=== PATIENT | male | born 1960 | race Caucasian/White ===

== ENCOUNTER 2016-12-08 21:43 | Emergency (ER) | payer OTHER ==
[~2016-12-08] VITALS: Ht 180.3 cm; Wt 70.0 kg
[~2016-12-08 21:43] MED LIST: LISI-587 PO; PROT40TA PO; SUCR1S PO; TAMS0.4C67 PO; ZOFR4TAB3 SL
[2016-12-08] MEDS ORDERED: SODIUM CHLOR 0.9% 1000 ML INJ 1,000 ML IV SCH (21:51)
[2016-12-08 21:52] VITALS: BP 175/103; PULSE 96; RESP 18; TEMP 98.6; O2SAT 97
[2016-12-08 21:56] VITALS: BP 177/105; PULSE 97; RESP 16; O2SAT 97
--- NOTE | 2016-12-08 21:59 | PD ---
HPI Chief Complaint: Abdominal Pain Time Seen by Provider: 21:53 Travel History International Travel<30 days: No Contact w/Intl Traveler<30days: No History of Present Illness HPI 56-year-old male with a history of hypertension and chronic epigastric abdominal pain presents to the emergency department for evaluation of epigastric abdominal pain. The patient reports a history of Monica fundoplication surgery about 20 years ago and states that it was performed to tight. States that he has had a few revisions since then which did not improve his pain. States that he follows up with pain management who performs celiac plexus blocks which has been keeping his pain under control but that he was unable to get the insurance approval in time to get another block, it is been 1.5 months and usually lasts about one month. States he has been taking oxycodone as prescribed by his pain management physician but that he began vomiting today and has been unable to keep any of his medications down. He denies any fever, chills, chest pain, shortness of breath, diarrhea, constipation, lightheadedness or dizziness. No other complaints. PFSH Past Medical History Genitourinary: Yes (BPH) Hypertension: Yes Immune Disorder: Yes (HEP C) Immunizations Current: Yes Past Surgical History Abdominal Surgery: Yes Appendectomy: Yes Other Surgery: Yes (FUNDOPLICATION, LAPROSCOPIC REVISION X2) Social History Alcohol Use: No Tobacco Use: Yes (1/2PPD) Substance Use: No Allergies-Medications (Allergen,Severity, Reaction): Coded Allergies: No Known Allergies (Unverified , 12/08/16) Reported Meds & Prescriptions Reported Meds & Active Scripts Active Carafate 1 Gm/10 Ml Udc (Sucralfate) 1 Gm/10 Ml Susp 1 Gm PO TIDACHS Take with water on an empty stomach. To reduce the potential of adversely affecting the absorption of other drugs, take other drugs 2 hours prior to Sucralfate. Zofran ODT (Ondansetron HCl) 4 Mg Tab 4 Mg SL QID PRN FOR NAUSEA/VOMITING Reported Flomax (Tamsulosin HCl) 0.4 Mg Cap 0.4 Mg PO DAILY Protonix (Pantoprazole Sodium) 40 Mg Tab 40 Mg PO BID Zestoretic 20/25 (Lisinopril/Hctz 20 mg/25 mg) 20 mg/25 mg Tab 1 Tab PO DAILY Review of Systems Except as stated in HPI: all other systems reviewed are Neg Physical Exam Narrative GENERAL: Well-nourished and well-developed male patient in no acute distress. SKIN: Warm and dry. HEAD: Normocephalic and atraumatic. EYES: No injection, drainage, or hyphema noted. PERRLA. EOMI. ENT: No nasal drainage noted. Oropharynx is clear. NECK: Supple and the trachea is midline. CARDIOVASCULAR: Regular rate and rhythm. RESPIRATORY: Breath sounds are equal bilaterally with no accessory muscle use, wheezing, rhonchi, or crackles. GASTROINTESTINAL: Mild epigastric tenderness to palpation. Abdomen is soft and nondistended. No rebound tenderness or guarding. MUSCULOSKELETAL: No obvious deformities, swelling, cyanosis, or ecchymosis is present throughout the upper and lower extremities. Patient has full range of motion without any signs of neurovascular compromise. NEUROLOGICAL: Awake, alert, and oriented. Normal speech and gait. Cranial nerves are grossly intact. Data Data Last Documented VS Vital Signs Date Time Temp Pulse Resp B/P Pulse Ox O2 Delivery O2 Flow Rate FiO2 12/08/16 21:56 97 16 177/105 97 Room Air 12/08/16 21:52 98.6 Orders Complete Blood Count With Diff (12/08/16 21:51) Comprehensive Metabolic Panel (12/08/16 21:51) Lipase (12/08/16 21:51) Urinalysis - C+S If Indicated (12/08/16 21:51) Iv Access Insert/Monitor (12/08/16 21:51) Ecg Monitoring (12/08/16 21:51) Oximetry (12/08/16 21:51) Ondansetron Inj (Zofran Inj) (12/08/16 22:00) Sodium Chlor 0.9% 1000 Ml Inj (Ns 1000 M (12/08/16 21:51) Sodium Chloride 0.9% Flush (Ns Flush) (12/08/16 22:00) Hydromorphone Pf Inj (Dilaudid Pf Inj) (12/08/16 22:00) Prochlorperazine Inj (Compazine Inj) (12/08/16 22:30) Labs Laboratory Tests Test 12/08/16 22:10 White Blood Count 9.6 TH/MM3 Red Blood Count 5.11 MIL/MM3 Hemoglobin 15.9 GM/DL Hematocrit 44.6 % Mean Corpuscular Volume 87.3 FL Mean Corpuscular Hemoglobin 31.1 PG Mean Corpuscular Hemoglobin 35.6 % Concent Red Cell Distribution Width 15.2 % Platelet Count 386 TH/MM3 Mean Platelet Volume 8.3 FL Neutrophils (%) (Auto) 78.9 % Lymphocytes (%) (Auto) 16.2 % Monocytes (%) (Auto) 4.1 % Eosinophils (%) (Auto) 0.0 % Basophils (%) (Auto) 0.8 % Neutrophils # (Auto) 7.6 TH/MM3 Lymphocytes # (Auto) 1.6 TH/MM3 Monocytes # (Auto) 0.4 TH/MM3 Eosinophils # (Auto) 0.0 TH/MM3 Basophils # (Auto) 0.1 TH/MM3 CBC Comment DIFF FINAL Differential Comment MDM Medical Decision Making Medical Screen Exam Complete: Yes Emergency Medical Condition: Yes Differential Diagnosis Chronic abdominal pain versus gastritis versus PUD versus GERD Narrative Course 56-year-old male presents to the emergency department for evaluation of epigastric abdominal pain and vomiting. Patient is afebrile, vital signs are stable. He has a history of same symptoms for years with these intermittent episodes about 3 times per year. IV access is obtained, labs have been drawn and sent. Patient is administered Dilaudid 2 mg IV and Zofran 4 mg IV. Patient signed out to Dr. Watts who will assume care of the patient and disposition. Nereida Tellez Dec 08, 2016 21:59
[2016-12-08] MEDS ORDERED: HYDROmorphone HCL PF 1 MG/ML VIAL IVS ONE (22:00)
[2016-12-08] MEDS ORDERED: ONDANSETRON HCL 4 MG/2 ML VIAL IVP ONE (22:00)
[2016-12-08] MEDS ORDERED: SODIUM CHLORIDE 0.9% FLUSH 5 ML FLUSH IVF PRN (22:00)
[2016-12-08 22:17] LABS: AUTOMATED NEUTROPHIL # 7.6 TH/MM3 (1.8-7.7); BASOPHIL # 0.1 TH/MM3 (0-0.2); BASOPHIL % 0.8 % (0.0-2.0); HEMATOCRIT 44.6 % (39.0-51.0); HEMO FLAGS DIFF FINAL; LYMPH % 16.2 % (9.0-44.0); LYMPHOCYTE # 1.6 TH/MM3 (1.0-4.8); MEAN CELL VOLUME 87.3 FL (80.0-100.0); MEAN CORPUSCULAR HEMOGLOBIN 31.1 PG (27.0-34.0); MEAN CORPUSCULAR HGB CONC 35.6 % (32.0-36.0); MONO % 4.1 % (0.0-8.0); NEUT % 78.9 % (16.0-70.0); PLATELET COUNT 386 TH/MM3 (150-450); RED BLOOD COUNT 5.11 MIL/MM3 (4.50-5.90); RED CELL DISTRIBUTION WIDTH 15.2 % (11.6-17.2); WHITE BLOOD COUNT 9.6 TH/MM3 (4.0-11.0)
[2016-12-08] MEDS ORDERED: PROCHLORPERAZINE INJ 10 MG/2 ML VIAL IVS ONE (22:30)
[2016-12-08 23:30] VITALS: BP 176/105; PULSE 88; RESP 16; O2SAT 97
[2016-12-08] MEDS ORDERED: HYDROmorphone HCL PF 1 MG/ML VIAL IV PUSH ONE (23:30)
[2016-12-08 23:31] LABS: ANION GAP 9 MEQ/L (5-15); AST (GOT) 66 U/L (15-37); BICARBONATE 26.8 MEQ/L (21.0-32.0); BLOOD UREA NITROGEN 13 MG/DL (7-18); CHLORIDE 104 MEQ/L (98-107); GLOMERULAR FILTRATION RATE 89 ML/MIN (>89); POTASSIUM 4.1 MEQ/L (3.5-5.1); SODIUM (NA) 140 MEQ/L (136-145)
[2016-12-08 23:34] LABS: ALKALINE PHOSPHATASE 73 U/L (45-117); ALT (GPT) 109 U/L (12-78); TOTAL BILIRUBIN ADULT 0.5 MG/DL (0.2-1.0)
[2016-12-08 23:52] LABS: BLOOD, URINE NEG (NEG); GLUCOSE,URINE NEG (NEG); KETONE, URINE 80 mg/dL (NEG); MUCUS URINE MANY /lpf (OCC); NITRITE,URINE NEG (NEG); PH, URINE 7.5 (5.0-8.5); SQUAMOUS EPITHELIAL CELL URINE 1 /hpf (0-5); URINE COLOR YELLOW (YELLW/STRAW)
[2016-12-08 23:53] LABS: COMMENT (UR) CULT NOT INDICATED; CULTURE IF INDICATED CULT NOT INDICATED
--- NOTE | 2016-12-09 01:11 | PD ---
Data Data Last Documented VS Vital Signs Date Time Temp Pulse Resp B/P Pulse Ox O2 Delivery O2 Flow Rate FiO2 12/08/16 23:30 88 16 176/105 97 Room Air 12/08/16 21:52 98.6 Orders Complete Blood Count With Diff (12/08/16 21:51) Comprehensive Metabolic Panel (12/08/16 21:51) Lipase (12/08/16 21:51) Urinalysis - C+S If Indicated (12/08/16 21:51) Iv Access Insert/Monitor (12/08/16 21:51) Ecg Monitoring (12/08/16 21:51) Oximetry (12/08/16 21:51) Ondansetron Inj (Zofran Inj) (12/08/16 22:00) Sodium Chlor 0.9% 1000 Ml Inj (Ns 1000 M (12/08/16 21:51) Sodium Chloride 0.9% Flush (Ns Flush) (12/08/16 22:00) Hydromorphone Pf Inj (Dilaudid Pf Inj) (12/08/16 22:00) Prochlorperazine Inj (Compazine Inj) (12/08/16 22:30) Hydromorphone Pf Inj (Dilaudid Pf Inj) (12/08/16 23:30) Labs Laboratory Tests Test 12/08/16 12/08/16 12/08/16 22:10 22:50 23:35 White Blood Count 9.6 TH/MM3 Red Blood Count 5.11 MIL/MM3 Hemoglobin 15.9 GM/DL Hematocrit 44.6 % Mean Corpuscular Volume 87.3 FL Mean Corpuscular Hemoglobin 31.1 PG Mean Corpuscular Hemoglobin 35.6 % Concent Red Cell Distribution Width 15.2 % Platelet Count 386 TH/MM3 Mean Platelet Volume 8.3 FL Neutrophils (%) (Auto) 78.9 % Lymphocytes (%) (Auto) 16.2 % Monocytes (%) (Auto) 4.1 % Eosinophils (%) (Auto) 0.0 % Basophils (%) (Auto) 0.8 % Neutrophils # (Auto) 7.6 TH/MM3 Lymphocytes # (Auto) 1.6 TH/MM3 Monocytes # (Auto) 0.4 TH/MM3 Eosinophils # (Auto) 0.0 TH/MM3 Basophils # (Auto) 0.1 TH/MM3 CBC Comment DIFF FINAL Differential Comment Sodium Level 140 MEQ/L Potassium Level 4.1 MEQ/L Chloride Level 104 MEQ/L Carbon Dioxide Level 26.8 MEQ/L Anion Gap 9 MEQ/L Blood Urea Nitrogen 13 MG/DL Creatinine 0.88 MG/DL Estimat Glomerular Filtration 89 ML/MIN Rate Random Glucose 114 MG/DL Calcium Level 9.5 MG/DL Total Bilirubin 0.5 MG/DL Aspartate Amino Transf 66 U/L (AST/SGOT) Alanine Aminotransferase 109 U/L (ALT/SGPT) Alkaline Phosphatase 73 U/L Total Protein 8.3 GM/DL Albumin 3.8 GM/DL Lipase 46 U/L Urine Color YELLOW Urine Turbidity CLEAR Urine pH 7.5 Urine Specific [place] 1.027 Urine Protein 30 mg/dL Urine Glucose (UA) NEG mg/dL Urine Ketones 80 mg/dL Urine Occult Blood NEG Urine Nitrite NEG Urine Bilirubin NEG Urine Urobilinogen 8.0 MG/DL Urine Leukocyte Esterase NEG Urine RBC 2 /hpf Urine WBC 3 /hpf Urine Squamous Epithelial 1 /hpf Cells Urine Mucus MANY /lpf Microscopic Urinalysis Comment CULT NOT INDICATED MDM Supervised Visit with MARY BETH: Yes Narrative Course The history, exam, and medical decision-making in the associated midlevel provider note were completed with my assistance. I reviewed and agree with the findings presented. I attest that I had a [id number] encounter with the patient on the same day, and personally performed and documented my assessment and findings in the medical record. *My assessment and Findings: This is a 56-year-old male who presents to the emergency department with poorly controlled abdominal pain and nausea in the setting of a history of chronic abdominal pain. He says his symptoms are similar to prior. He's been getting treated with still at plexus blocks and oxycodone by his pain management doctor however he's been having trouble getting approval for his celiac plexus block. Patient is uncomfortable appearing on exam, tender to palpation in the epigastrium. Labs are all reassuring. I don't think any imaging is warranted as this pain is acute on chronic. Patient was given opiates only because he is currently being prescribed opiates at home, and we were able to get his pain under control in the emergency Department. I don't think he warrants admission or advanced imaging at this time. Patient was discharged home. Ericka Watts MD Dec 09, 2016 01:11
[2016-12-09] MEDS ORDERED: HYDROmorphone HCL PF 1 MG/ML VIAL IV PUSH ONE (01:30)
[2016-12-09] MEDS ORDERED: LISI20TA3 PO (01:48)
[2016-12-09] MEDS ORDERED: ZOFR8TAB4 SL (01:50)
[2016-12-09] MEDS ORDERED: PROT40TA PO (01:50)
[2016-12-09] MEDS ORDERED: OXYC15TA PO (01:52)
[2016-12-09] MEDS ORDERED: TAMS5CAP PO (01:52)
--- NOTE | 2016-12-09 02:30 | PD ---
Data Data Last Documented VS Vital Signs Date Time Temp Pulse Resp B/P Pulse Ox O2 Delivery O2 Flow Rate FiO2 12/08/16 23:30 88 16 176/105 97 Room Air 12/08/16 21:52 98.6 Orders Complete Blood Count With Diff (12/08/16 21:51) Comprehensive Metabolic Panel (12/08/16 21:51) Lipase (12/08/16 21:51) Urinalysis - C+S If Indicated (12/08/16 21:51) Iv Access Insert/Monitor (12/08/16 21:51) Ecg Monitoring (12/08/16 21:51) Oximetry (12/08/16 21:51) Ondansetron Inj (Zofran Inj) (12/08/16 22:00) Sodium Chlor 0.9% 1000 Ml Inj (Ns 1000 M (12/08/16 21:51) Sodium Chloride 0.9% Flush (Ns Flush) (12/08/16 22:00) Hydromorphone Pf Inj (Dilaudid Pf Inj) (12/08/16 22:00) Prochlorperazine Inj (Compazine Inj) (12/08/16 22:30) Hydromorphone Pf Inj (Dilaudid Pf Inj) (12/08/16 23:30) Hydromorphone Pf Inj (Dilaudid Pf Inj) (12/09/16 01:30) Labs Laboratory Tests Test 12/08/16 12/08/16 12/08/16 22:10 22:50 23:35 White Blood Count 9.6 TH/MM3 Red Blood Count 5.11 MIL/MM3 Hemoglobin 15.9 GM/DL Hematocrit 44.6 % Mean Corpuscular Volume 87.3 FL Mean Corpuscular Hemoglobin 31.1 PG Mean Corpuscular Hemoglobin 35.6 % Concent Red Cell Distribution Width 15.2 % Platelet Count 386 TH/MM3 Mean Platelet Volume 8.3 FL Neutrophils (%) (Auto) 78.9 % Lymphocytes (%) (Auto) 16.2 % Monocytes (%) (Auto) 4.1 % Eosinophils (%) (Auto) 0.0 % Basophils (%) (Auto) 0.8 % Neutrophils # (Auto) 7.6 TH/MM3 Lymphocytes # (Auto) 1.6 TH/MM3 Monocytes # (Auto) 0.4 TH/MM3 Eosinophils # (Auto) 0.0 TH/MM3 Basophils # (Auto) 0.1 TH/MM3 CBC Comment DIFF FINAL Differential Comment Sodium Level 140 MEQ/L Potassium Level 4.1 MEQ/L Chloride Level 104 MEQ/L Carbon Dioxide Level 26.8 MEQ/L Anion Gap 9 MEQ/L Blood Urea Nitrogen 13 MG/DL Creatinine 0.88 MG/DL Estimat Glomerular Filtration 89 ML/MIN Rate Random Glucose 114 MG/DL Calcium Level 9.5 MG/DL Total Bilirubin 0.5 MG/DL Aspartate Amino Transf 66 U/L (AST/SGOT) Alanine Aminotransferase 109 U/L (ALT/SGPT) Alkaline Phosphatase 73 U/L Total Protein 8.3 GM/DL Albumin 3.8 GM/DL Lipase 46 U/L Urine Color YELLOW Urine Turbidity CLEAR Urine pH 7.5 Urine Specific [place] 1.027 Urine Protein 30 mg/dL Urine Glucose (UA) NEG mg/dL Urine Ketones 80 mg/dL Urine Occult Blood NEG Urine Nitrite NEG Urine Bilirubin NEG Urine Urobilinogen 8.0 MG/DL Urine Leukocyte Esterase NEG Urine RBC 2 /hpf Urine WBC 3 /hpf Urine Squamous Epithelial 1 /hpf Cells Urine Mucus MANY /lpf Microscopic Urinalysis Comment CULT NOT INDICATED MDM Supervised Visit with MARY BETH: Yes Diagnosis Primary Impression: Chronic abdominal pain Patient Instructions: General Instructions Additional Instruction: If you develop severe or worsening abdominal pain, fever>100.4, persistent vomiting or inability to eat or drink return to the emergency department immediately. Follow up with your primary care physician in 1-2 days for a check-up. Med/Other Pt SpecificInfo: No Change to Meds Disposition: 01 DISCHARGE HOME Condition: Stable Ericka Watts MD Dec 09, 2016 02:30
== END 2016-12-09 02:45 | disposition home or self-care (01) ==
LOC: NEPC 21:43
DX: R10.13 Epigastric pain (principal); G89.29 Other chronic pain; R50.9 Fever, unspecified; I10 Essential (primary) hypertension; N40.0 Benign prostatic hyperplasia without lower urinary tract symptoms
CPT/HCPCS: 80053; 81001; 83690; 85025; 96374; 96375; 96376; 99284; J0780; J1170; J2405; J7030

== ENCOUNTER 2017-02-02 18:43 | Emergency (ER) | payer OTHER ==
[~2017-02-02] VITALS: Ht 180.3 cm; Wt 70.0 kg
[~2017-02-02 18:43] MED LIST changes: -LISI-587 PO; +LISI20TA3 PO; +OXYC15TA PO; -SUCR1S PO; -TAMS0.4C67 PO; +TAMS5CAP PO; -ZOFR4TAB3 SL; +ZOFR8TAB4 SL
[2017-02-02 18:49] VITALS: BP 183/97; PULSE 88; RESP 22; TEMP 98.9; O2SAT 100
[2017-02-02 18:55] VITALS: BP 183/97; PULSE 83; RESP 18; O2SAT 100
[2017-02-02] MEDS ORDERED: SODIUM CHLOR 0.9% 1000 ML INJ 1,000 ML IV SCH (19:05)
[2017-02-02] MEDS ORDERED: PANTOPRAZOLE SODIUM 40 MG VIAL IVP ONE (19:15)
[2017-02-02] MEDS ORDERED: ALUMINUM/MAGNESIUM/SIMETH 30 ML CUP PO ONE (19:15)
[2017-02-02] MEDS ORDERED: SODIUM CHLOR 0.9% 1000 ML INJ 1,000 ML IV ONE (19:15)
[2017-02-02] MEDS ORDERED: SODIUM CHLORIDE 0.9% FLUSH 10 ML FLUSH IV FLUSH PRN (19:15)
[2017-02-02] MEDS ORDERED: LIDOCAINE VISCOUS 2% SOLN 15 ML UDC PO ONE (19:15)
[2017-02-02] MEDS ORDERED: HYDROmorphone HCL PF 1 MG/ML VIAL IVS ONE (19:15)
[2017-02-02] MEDS ORDERED: DICYCLOMINE HCL 10 MG CAP PO ONE (19:15)
[2017-02-02] MEDS ORDERED: ONDANSETRON HCL 4 MG/2 ML VIAL IVP ONE (19:15)
--- NOTE | 2017-02-02 19:19 | PD ---
HPI Chief Complaint: Abdominal Pain Time Seen by Provider: 18:59 Travel History International Travel<30 days: No Contact w/Intl Traveler<30days: No Traveled to known affect area: No History of Present Illness HPI Patient is a 56-year-old male with history of hypertension, BPH, GERD, chronic abdominal pain currently seeing pain management for this. Patient reports that 2 days ago, he woke up and had epigastric pain. Reports that he always has epigastric pain and takes to his symptoms usually resolve after taking Zofran, Protonix and oxycodone. He tried his medication with no relief of symptoms. Patient reports that he does see pain management (DR. Rudd) for his epigastric pain and does get celiac nerve blocks, he did receive a nerve block last week and reports that "it didn't work the last time." Patient reports that he has had multiple surgeries as he had a Hai fundoplication a few years ago and had 2 revisions due to a "failed surgery". PFSH Past Medical History Cardiovascular Problems: Yes Diabetes: No Genitourinary: Yes (BPH) Hypertension: Yes Immune Disorder: Yes (HEP C) Immunizations Current: Yes Tetanus Vaccination: < 5 Years Influenza Vaccination: Yes Past Surgical History Abdominal Surgery: Yes (HERNIA REPAIR X3) Appendectomy: Yes Other Surgery: Yes (FUNDOPLICATION, LAPROSCOPIC REVISION X2) Social History Alcohol Use: No Tobacco Use: Yes (1/2PPD) Substance Use: No Allergies-Medications (Allergen,Severity, Reaction): Coded Allergies: No Known Allergies (Unverified , 02/02/17) Reported Meds & Prescriptions Reported Meds & Active Scripts Active Zofran Odt (Ondansetron Odt) 4 Mg Tab 4 Mg SL Q6HR PRN Reported Oxycodone (Oxycodone HCl) 15 Mg Tab 15 Mg PO Q4H PRN Flomax (Tamsulosin HCl) 0.4 Mg Cap 0.4 Mg PO HS Zofran Odt (Ondansetron Odt) 8 Mg Tab 8 Mg SL Q8H PRN Protonix (Pantoprazole Sodium) 40 Mg Tab 40 Mg PO DAILY Lisinopril-Hctz 20-25 Mg Tab 1 Tab PO DAILY Review of Systems General / Constitutional: No: Fever Eyes: No: Visual changes HENT: No: Headaches Cardiovascular: No: Chest Pain or Discomfort Respiratory: No: Shortness of Breath Gastrointestinal: Positive: Nausea, Vomiting, Diarrhea, Abdominal Pain Genitourinary: No: Dysuria Musculoskeletal: No: Pain Skin: No Rash Neurologic: No: Weakness Psychiatric: No: Depression Endocrine: No: Polydipsia Hematologic/Lymphatic: No: Easy Bruising Physical Exam Narrative GENERAL: Mild distress SKIN: Warm and dry. HEAD: Atraumatic. Normocephalic. EYES: Pupils equal and round. No scleral icterus. No injection or drainage. ENT: No nasal bleeding or discharge. Mucous membranes pink and moist. NECK: Trachea midline. No JVD. CARDIOVASCULAR: Regular rate and rhythm. No murmur appreciated. RESPIRATORY: No accessory muscle use. Clear to auscultation. Breath sounds equal bilaterally. GASTROINTESTINAL: Abdomen soft, increased tenderness to epigastrium MUSCULOSKELETAL: No obvious deformities. No clubbing. No cyanosis. No edema. NEUROLOGICAL: Awake and alert. No obvious cranial nerve deficits. Motor grossly within normal limits. Normal speech. PSYCHIATRIC: Appropriate mood and affect; insight and judgment normal. Data Data Last Documented VS Vital Signs Date Time Temp Pulse Resp B/P Pulse Ox O2 Delivery O2 Flow Rate FiO2 02/02/17 21:49 80 18 164/92 98 Room Air 02/02/17 18:49 98.9 Orders Complete Blood Count With Diff (02/02/17 19:05) Comprehensive Metabolic Panel (02/02/17 19:05) Lipase (02/02/17 19:05) Prothrombin Time / Inr (Pt) (02/02/17 19:05) Act Partial Throm Time (Ptt) (02/02/17 19:05) Urinalysis - C+S If Indicated (02/02/17 19:05) Ct Abd/Pel W Iv Contrast(Rout) (02/02/17 19:05) Iv Access Insert/Monitor (02/02/17 19:05) Ecg Monitoring (02/02/17 19:05) Oximetry (02/02/17 19:05) NPO (02/02/17 19:05) Ondansetron Inj (Zofran Inj) (02/02/17 19:15) Pantoprazole Inj (Protonix Inj) (02/02/17 19:15) Sodium Chlor 0.9% 1000 Ml Inj (Ns 1000 M (02/02/17 19:05) Sodium Chloride 0.9% Flush (Ns Flush) (02/02/17 19:15) Electrocardiogram (02/02/17 19:05) Chest, Single Ap (02/02/17 19:05) Dicyclomine (Bentyl) (02/02/17 19:15) Hydromorphone Pf Inj (Dilaudid Pf Inj) (02/02/17 19:15) Al-Mag Hy-Si 40-40-4 Mg/Ml Liq (Mag-Al P (02/02/17 19:15) Lidocaine 2% Viscous (Xylocaine 2% Visco (02/02/17 19:15) Sodium Chlor 0.9% 1000 Ml Inj (Ns 1000 M (02/02/17 19:15) Iohexol 350 Inj (Omnipaque 350 Inj) (02/02/17 20:51) Ketorolac Inj (Toradol Inj) (02/02/17 21:00) Electrocardiogram (02/02/17 ) Chlorpromazine Inj (Thorazine Inj) (02/02/17 23:15) Labs Laboratory Tests Test 02/02/17 19:45 White Blood Count 9.1 TH/MM3 Red Blood Count 4.89 MIL/MM3 Hemoglobin 15.1 GM/DL Hematocrit 43.8 % Mean Corpuscular Volume 89.5 FL Mean Corpuscular Hemoglobin 30.9 PG Mean Corpuscular Hemoglobin 34.6 % Concent Red Cell Distribution Width 13.6 % Platelet Count 288 TH/MM3 Mean Platelet Volume 7.8 FL Neutrophils (%) (Auto) 69.4 % Lymphocytes (%) (Auto) 23.0 % Monocytes (%) (Auto) 6.5 % Eosinophils (%) (Auto) 0.2 % Basophils (%) (Auto) 0.9 % Neutrophils # (Auto) 6.3 TH/MM3 Lymphocytes # (Auto) 2.1 TH/MM3 Monocytes # (Auto) 0.6 TH/MM3 Eosinophils # (Auto) 0.0 TH/MM3 Basophils # (Auto) 0.1 TH/MM3 CBC Comment DIFF FINAL Differential Comment Prothrombin Time 11.5 SEC Prothromb Time International 1.0 RATIO Ratio Activated Partial 25.3 SEC Thromboplast Time Sodium Level 139 MEQ/L Potassium Level 3.7 MEQ/L Chloride Level 106 MEQ/L Carbon Dioxide Level 23.5 MEQ/L Anion Gap 10 MEQ/L Blood Urea Nitrogen 17 MG/DL Creatinine 0.88 MG/DL Estimat Glomerular Filtration 89 ML/MIN Rate Random Glucose 100 MG/DL Calcium Level 8.9 MG/DL Total Bilirubin 0.5 MG/DL Aspartate Amino Transf 44 U/L (AST/SGOT) Alanine Aminotransferase 107 U/L (ALT/SGPT) Alkaline Phosphatase 59 U/L Total Protein 8.0 GM/DL Albumin 3.7 GM/DL Lipase 54 U/L MDM Medical Decision Making Medical Screen Exam Complete: Yes Emergency Medical Condition: Yes Interpretation(s) EKG at 2024: NSR at 74bpm, qt/qtc: 347/375, no acute st or t wave changes Vital Signs Date Time Temp Pulse Resp B/P Pulse Ox O2 Delivery O2 Flow Rate FiO2 02/02/17 18:55 18 02/02/17 18:55 83 18 183/97 100 Room Air 02/02/17 18:49 98.9 88 22 183/97 100 Differential Diagnosis GERD, acute on chronic abdominal pain, gastric ulcer, duodenal ulcer, cholecystitis, electrolyte abnormality, gastroenteritis Narrative Course Patient is a 56-year-old male who presents to emergency room with complaints of abdominal pain. Patient's abdominal pain started 2 days ago, reports that he has history of chronic abdominal pain, he does see pain management for this. Patient did take his normal medications which includes oxycodone, Zofran, Protonix with no relief of symptoms. Patient here with intractable vomiting and pain. To obtain EKG to rule out ACS , x-ray of the chest ordered. Labs including liver function tests, CBC, BMP ordered. CT of the abdomen and pelvis ordered for evaluation of acute abdominal pathology CBC & BMP Diagram 02/02/17 19:45 Last Impressions Chest X-Ray 02/02/171904 Signed Impressions: Service Date/Time: Thursday, February 02, 2017 19:13 - CONCLUSION: No acute cardiopulmonary disease. Antolin Mccallum MD Abdomen/Pelvis CT 02/02/171904 Signed Impressions: Service Date/Time: Thursday, February 02, 2017 20:50 - CONCLUSION: 1. Tiny nonobstructing renal stones. 2. Hepatic and renal cysts. Antolin Mccallum MD All labs and all studies reviewed with patient in detail. Patient reports that he still has pain and request for Dilaudid, request that I will not give him any more Dilaudid for his chronic pain, I will give him a dose of chlorpromazine for his intractable nausea and vomiting. Diagnosis Primary Impression: Chronic abdominal pain Additional Impression: Nausea & vomiting Qualified Code: R11.2 - Nausea and vomiting, intractability of vomiting not specified, unspecified vomiting type Patient Instructions: Narcotic given in the ED, General Instructions Additional Instructions: Please provide patient with a copy of his labwork and studies at discharge Please follow-up with your primary care doctor Please follow-up with your paint tinter Please return to emergency room as needed These follow-up with your engine service repairer Med/Other Pt SpecificInfo: Prescription(s) given Scripts Ondansetron Odt (Zofran Odt)4 Mg Tab4 Mg SL Q6HR PRN (Nausea/Vomiting) #30 TAB Ref 0 Prov:Katharine Swan DO 02/02/17 Disposition: 01 DISCHARGE HOME Condition: Stable Katharine Swan DO Feb 02, 2017 19:19
[2017-02-02 19:46] VITALS: RESP 18; O2SAT 99
[2017-02-02 20:01] LABS: AUTOMATED NEUTROPHIL # 6.3 TH/MM3 (1.8-7.7); BASOPHIL # 0.1 TH/MM3 (0-0.2); BASOPHIL % 0.9 % (0.0-2.0); EOSINOPHIL % 0.2 % (0.0-4.0); HEMATOCRIT 43.8 % (39.0-51.0); HEMO FLAGS DIFF FINAL; LYMPHOCYTE # 2.1 TH/MM3 (1.0-4.8); MEAN CELL VOLUME 89.5 FL (80.0-100.0); MEAN CORPUSCULAR HEMOGLOBIN 30.9 PG (27.0-34.0); MEAN CORPUSCULAR HGB CONC 34.6 % (32.0-36.0); MONO % 6.5 % (0.0-8.0); NEUT % 69.4 % (16.0-70.0); PLATELET COUNT 288 TH/MM3 (150-450); RED BLOOD COUNT 4.89 MIL/MM3 (4.50-5.90); RED CELL DISTRIBUTION WIDTH 13.6 % (11.6-17.2); WHITE BLOOD COUNT 9.1 TH/MM3 (4.0-11.0)
--- NOTE | 2017-02-02 20:08 | RADRPT ---
EXAM DATE/TIME: 02/02/2017 19:13 [facility] COMPARISON: No previous studies available for comparison. INDICATIONS : Abdominal pain. MEDICAL HISTORY : Hiatal hernia. SURGICAL HISTORY : Fundoplication ENCOUNTER: Initial ACUITY: 3 days PAIN SCORE: 10/10 LOCATION: Bilateral chest FINDINGS: The lungs are clear without infiltrate, nodule, or mass. There is no appreciable pleural effusion fo r technique. Heart and mediastinum are unremarkable. CONCLUSION: No acute cardiopulmonary disease. Antolin Mccallum MD on February 02, 2017 at 20:06 Board Certified Radiologist. This report was verified electronically.
[2017-02-02 20:09] LABS: APTT (PATIENT) 25.3 SEC (24.3-30.1); PROTHROMBIN TIME - PATIENT 11.5 SEC (9.8-11.6)
[2017-02-02 20:18] LABS: ANION GAP 10 MEQ/L (5-15); AST (GOT) 44 U/L (15-37); BICARBONATE 23.5 MEQ/L (21.0-32.0); BLOOD UREA NITROGEN 17 MG/DL (7-18); CHLORIDE 106 MEQ/L (98-107); GLOMERULAR FILTRATION RATE 89 ML/MIN (>89); POTASSIUM 3.7 MEQ/L (3.5-5.1); SODIUM (NA) 139 MEQ/L (136-145)
[2017-02-02 20:23] LABS: ALKALINE PHOSPHATASE 59 U/L (45-117); ALT (GPT) 107 U/L (12-78); TOTAL BILIRUBIN ADULT 0.5 MG/DL (0.2-1.0)
[2017-02-02] MEDS ORDERED: IOHEXOL 350 MG/ML 10 ML VIAL (for RAD DIAG) IV ONE (20:51)
[2017-02-02] MEDS ORDERED: KETOROLAC TROMETHAMINE 30 MG/ML (IVP) VIAL IV PUSH ONE (21:00)
--- NOTE | 2017-02-02 21:12 | RADRPT ---
EXAM DATE/TIME: 02/02/2017 20:50 [facility] COMPARISON: No previous studies available for comparison. INDICATIONS : Abdominal pain with nausea and vomiting for 3 days. IV CONTRAST: 91 cc Omnipaque 350 (iohexol) IV ORAL CONTRAST: No oral contrast ingested. RADIATION DOSE: 5.61 CTDIvol (mGy) MEDICAL HISTORY : Cardiovascular disease. Hypertension. Hernia.Hep C SURGICAL HISTORY : Appendectomy. hernia repair. ENCOUNTER: Initial ACUITY: 3 days PAIN SCALE: 5/10 LOCATION: Abdomen/pelvis TECHNIQUE: Volumetric scanning of the abdomen and pelvis was performed. Using automated exposure control and ad justment of the mA and/or kV according to patient size, radiation dose was kept as low as reasonably achievable to obtain optimal diagnostic quality images. FINDINGS: CT Abdomen: The pancreas, adrenals are unremarkable. There is no evidence for any appreciable patholo gical adenopathy, free fluid, or bowel obstruction. There are small cysts in both kidneys the larges t one on the left measures 1.4 cm in size. There is also tiny 1-2 mm stone in the right lower pole ki dney with 3 tiny 1 mm stones in the left kidney. There are calcified granulomas in the spleen. Chroni c vascular calcifications are present involving the aorta, iliac arteries without any significant noah nosis or aneurysmal dilatations for technique. There is a tiny 4-5 mm simple cyst in the liver as wel l. CT pelvis: There is no evidence for mass, abscess formation, or any significant adenopathy within the pelvis. The prostate gland is inhomogeneous and measures 3.5 x 4.8 cm in AP and transverse diameters and nonspecific. There are scattered diverticuli mainly in the sigmoid colon without definite signs of diverticulitis. CONCLUSION: 1. Tiny nonobstructing renal stones. 2. Hepatic and renal cysts. Antolin Mccallum MD on February 02, 2017 at 21:05 Board Certified Radiologist. This report was verified electronically.
[2017-02-02 21:49] VITALS: BP 164/92; PULSE 80; RESP 18; O2SAT 98
[2017-02-02] MEDS ORDERED: ZOFR4TAB3 SL (23:10)
[2017-02-02] MEDS ORDERED: chlorproMAZINE INJ 25 MG in SODIUM CHLORID 0.9% 500 ML INJ 500 ML IV ONE (23:15)
--- NOTE | 2017-02-03 14:44 | EKG ---
Date Performed: 02/02/2017 Time Performed: 20:25:19 PTAGE: 56 years EKG: Sinus rhythm NORMAL ECG Compared to prior tracing no significant change PREVIOUS TRACING : 12/28/2014 11.28 DOCTOR: Chapo Hardy Interpretating Date/Time 02/03/2017 14:40:15
== END 2017-02-03 02:13 | disposition home or self-care (01) ==
LOC: NEPA 18:43
DX: R10.13 Epigastric pain (principal); G89.29 Other chronic pain; R11.2 Nausea with vomiting, unspecified; I10 Essential (primary) hypertension; F17.200 Nicotine dependence, unspecified, uncomplicated; Z87.438 Personal history of other diseases of male genital organs; Z87.19 Personal history of other diseases of the digestive system; Z86.79 Personal history of other diseases of the circulatory system
CPT/HCPCS: 71010; 74177; 80053; 83690; 85025; 85610; 85730; 93005; 96374; 96375; 99285; C9113; J1170; J1885; J2405; J3230; J7030; J7040; Q9967

== ENCOUNTER 2017-02-03 02:10 | Emergency (ER) | payer OTHER ==
[~2017-02-03 02:10] MED LIST changes: +ZOFR4TAB3 SL
[2017-02-03 02:14] VITALS: BP 176/96; PULSE 89; RESP 16; TEMP 97.6; O2SAT 97
== END 2017-02-03 02:21 | disposition left against medical advice (07) ==
LOC: NED 02:10
DX: R10.9 Unspecified abdominal pain (principal)
CPT/HCPCS: 99281